=== PATIENT | female | born 1950 | race Caucasian/White ===

== ENCOUNTER 2024-04-22 19:12 | Emergency (ER) | payer MEDICARE, OTHER ==
[2024-04-22] MEDS ORDERED: Sodium Chloride 0.9% 10 ML Syringe FLUSH PRN (19:13)
[2024-04-22] MEDS: Albuterol/Ipratropium 3.0-0.5 MG/3 ML Neb Soln NEB ONE (19:29)
[2024-04-22] MEDS: Bumetanide 2.5 MG/10 ML MDV IVPUSH ONE (19:31)
[2024-04-22] MEDS: Sodium Chloride 0.9% 10 ML Syringe FLUSH PRN (19:32)
[2024-04-22 19:39] LABS: BASOPHILS ABSOLUTE AUTO 0.01 K/uL (0.00-0.20); BASOPHILS PERCENT AUTO 0.2 % (0.0-2.0); EOSINOPHILS ABSOLUTE AUTO 0.09 K/uL (0.00-0.50); EOSINOPHILS PERCENT AUTO 1.5 % (0.0-5.0); HEMATOCRIT 33.9 % (34.0-46.0); HEMOGLOBIN 10.8 g/dL (11.7-15.5); LYMPHOCYTES PERCENT AUTO 20.6 % (10.0-50.0); MEAN CORPUSCULAR HEMOGLOBIN 30.4 pg (28.2-33.3); MEAN CORPUSCULAR HGB CONC 31.9 g/dL (31.7-36.0); MEAN CORPUSCULAR VOLUME 95.5 fL (84.0-98.0); MONOCYTES ABSOLUTE AUTO 0.64 K/uL (0.00-1.00); NEUTROPHILS ABSOLUTE AUTO 3.89 K/uL (1.40-7.00); NEUTROPHILS PERCENT AUTO 66.7 % (45.0-80.0); PLATELET COUNT,PLT 85 K/uL (150-350); RED BLOOD CELL COUNT 3.55 M/uL (3.77-5.09); RED CELL DISTRIBUTION WIDTH 17.4 % (11.2-14.1); WHITE BLOOD CELL COUNT,WBC 5.8 K/uL (4.0-10.2)
[2024-04-22 19:48] LABS: INR 1.5 (0.9-1.1); PROTHROMBIN TIME 14.4 SEC (9.0-11.1)
[2024-04-22 20:09] LABS: ALANINE AMINOTRANSFERASE,ALT 131 U/L (12-78); ALBUMIN 3.5 g/dL (3.4-5.0); ALKALINE PHOSPHATASE 136 IU/L (46-116); ANION GAP 10.1 meq/L (7-15); ASPARTATE AMNIOTRANSFERASE,AST 111 U/L (15-37); BILIRUBIN TOTAL 0.8 mg/dL (0.2-1.0); BLOOD UREA NITROGEN,BUN 32 mg/dL (7-18); CALCIUM 9.1 mg/dL (8.5-10.1); CARBON DIOXIDE,CO2 23.9 mmol/L (21.0-32.0); CHLORIDE,CL 103 mmol/L (98-107); CREATININE 1.59 mg/dL (0.51-1.17); GLUCOSE RANDOM 287 mg/dL (70-99); POTASSIUM,K 4.6 mmol/L (3.5-5.1); PRO B-TYPE NATRIUR PEPT,BNPPRO 14147 pg/mL (0-125); PROTEIN TOTAL,TP 7.3 g/dL (6.4-8.2); SODIUM,NA 137 mmol/L (136-145)
[2024-04-22 20:10] LABS: ESTIMATED GFR 34 mL/min (>=60)
[2024-04-22 20:22] LABS: APPEARANCE,URINE CLOUDY; BILIRUBIN,URINE NEGATIVE (NEGATIVE); COLOR,URINE YELLOW; GLUCOSE,URINE NEGATIVE (NEGATIVE); KETONES,URINE NEGATIVE (NEGATIVE); LEUKOCYTE ESTERASE,URINE NEGATIVE (NEGATIVE); NITRITE,URINE NEGATIVE (NEGATIVE); OCCULT BLOOD,URINE LARGE (NEGATIVE); PH,URINE 5.5 (5.0-9.0); PROTEIN,URINE 30 mg/dL (NEGATIVE); UROBILINOGEN,URINE 0.2 E.U./dL (0.2-1.0)
[2024-04-22 20:30] LABS: BACTERIA,URINE RARE /HPF (NONE TO FEW); EPITHELIAL CELLS,URINE MANY /LPF; RBC,URINE >100 /HPF; WBC,URINE 0-5 /HPF
[2024-04-22] MEDS: Carvedilol 25 MG Tab PO ONE (21:50)
[2024-04-22] MEDS: glipiZIDE 5 MG Tab.ER ONE (21:55)
[2024-04-22] MEDS: Heparin Sodium/0.45% NaCl 500 ML IV SCH (22:29)
[2024-04-23] MEDS ORDERED: glipiZIDE 5 MG Tab.ER PO ONE (21:42)
== END 2024-04-23 00:10 ==
LOC: LL.ED 19:12
DX: I50.43 Acute on chronic combined systolic (congestive) and diastolic (congestive) heart failure (principal); I48.11 Longstanding persistent atrial fibrillation; R06.02 Shortness of breath; R79.89 Other specified abnormal findings of blood chemistry; Z88.8 Allergy status to other drugs, medicaments and biological substances; Z79.82 Long term (current) use of aspirin; Z79.890 Hormone replacement therapy; Z79.01 Long term (current) use of anticoagulants; Z79.899 Other long term (current) drug therapy
CPT/HCPCS: 36415; 51798; 71046; 80053; 81001; 83605; 83735; 83880; 84484; 85025; 85610; 93005; 94640; 96365; 96366; 96375; 99285-25; A9270-GY; J1644; J3490; J7620-GY